=== PATIENT | female | born 1955 | race Caucasian/White ===

== ENCOUNTER → 2017-04-05 | Outpatient (CLI) | payer OTHER ==
[~2017-04-05] MED LIST: CALA180T PO; COZA100T PO; LOPR50TA12 PO; MECL-62 PO
[2017-04-05 09:27] LABS: BASOPHIL % 0.7 % (0.0-2.0); EOSINOPHIL % 0.5 % (0.0-4.0); HEMATOCRIT 35.8 % (35.0-46.0); HEMO FLAGS DIFF FINAL; LYMPH % 17.8 % (9.0-44.0); MEAN CELL VOLUME 86.8 FL (80.0-100.0); MEAN CORPUSCULAR HEMOGLOBIN 29.5 PG (27.0-34.0); MONO % 9.5 % (0.0-8.0); NEUT % 71.5 % (16.0-70.0); PLATELET COUNT 217 TH/MM3 (150-450); RED BLOOD COUNT 4.12 MIL/MM3 (4.00-5.30); RED CELL DISTRIBUTION WIDTH 15.3 % (11.6-17.2); WHITE BLOOD COUNT 5.6 TH/MM3 (4.0-11.0)
[2017-04-05 10:02] LABS: WESTERGREN SEDIMENTATION RATE 6 mm/hr (0-30)
[2017-04-05 10:03] LABS: ALKALINE PHOSPHATASE 132 U/L (45-117); ALT (GPT) 25 U/L (10-53); ANION GAP 6 MEQ/L (5-15); AST (GOT) 20 U/L (15-37); BICARBONATE 27.3 MEQ/L (21.0-32.0); BLOOD UREA NITROGEN 10 MG/DL (7-18); CHLORIDE 98 MEQ/L (98-107); GLOMERULAR FILTRATION RATE 90 ML/MIN (>89); GLUCOSE,FASTING 91 MG/DL (74-99); HDL CHOLESTEROL 88.4 MG/DL (40.0-60.0); LDL CHOLESTEROL 64 MG/DL (0-99); POTASSIUM 4.4 MEQ/L (3.5-5.1); SODIUM (NA) 131 MEQ/L (136-145); TOTAL BILIRUBIN ADULT 0.3 MG/DL (0.2-1.0)
[2017-04-05 12:31] LABS: HEMOGLOBIN A1a 1.1 %; HEMOGLOBIN A1b 1.4 %; HEMOGLOBIN Ao 86.2 %; HEMOGLOBIN LA1C 1.8 %; HEMOGLOBIN P3 3.5 %
== END ==
LOC: CLAB 09:00
PROVIDERS: ATTEND Internal Medicine Rheumatology
DX: I10 Essential (primary) hypertension (principal); M35.01 Sjogren syndrome with keratoconjunctivitis; Z79.899 Other long term (current) drug therapy
CPT/HCPCS: 36415; 80053; 80061; 82306; 83036; 84443; 85025; 85652; 86317

== ENCOUNTER → 2017-12-12 | Outpatient (CLI) | payer OTHER ==
[2017-12-12 12:31] LABS: HEMATOCRIT 36.2 % (35.0-46.0); MEAN CELL VOLUME 88.1 FL (80.0-100.0); MEAN CORPUSCULAR HEMOGLOBIN 29.1 PG (27.0-34.0); MEAN PLATELET VOLUME 7.1 FL (7.0-11.0); PLATELET COUNT 253 TH/MM3 (150-450); RED BLOOD COUNT 4.11 MIL/MM3 (4.00-5.30); RED CELL DISTRIBUTION WIDTH 13.4 % (11.6-17.2); REVIEW FLAG FINAL; WHITE BLOOD COUNT 9.3 TH/MM3 (4.0-11.0)
[2017-12-12 12:42] LABS: ALKALINE PHOSPHATASE 119 U/L (45-117); TOTAL BILIRUBIN ADULT 0.3 MG/DL (0.2-1.0); TOTAL PROTEIN 7.2 GM/DL (6.4-8.2)
[2017-12-12 12:48] LABS: ALBUMIN 3.3 GM/DL (3.4-5.0); ALT (GPT) 29 U/L (10-53); ANION GAP 7 MEQ/L (5-15); AST (GOT) 23 U/L (15-37); BICARBONATE 23.7 MEQ/L (21.0-32.0); BLOOD UREA NITROGEN 7 MG/DL (7-18); CALCIUM 9.3 MG/DL (8.5-10.1); CHLORIDE 102 MEQ/L (98-107); CREATININE 0.67 MG/DL (0.50-1.00); GLOMERULAR FILTRATION RATE 89 ML/MIN (>89); GLUCOSE,FASTING 92 MG/DL (74-99); POTASSIUM 4.4 MEQ/L (3.5-5.1); SODIUM (NA) 133 MEQ/L (136-145)
[2017-12-12 12:55] LABS: WESTERGREN SEDIMENTATION RATE 11 mm/hr (0-30)
== END ==
LOC: CLAB 11:48
DX: M35.01 Sjogren syndrome with keratoconjunctivitis (principal); Z79.899 Other long term (current) drug therapy
CPT/HCPCS: 36415; 80053; 85027; 85652

== ENCOUNTER → 2018-01-23 | Outpatient (CLI) | payer OTHER ==
[2018-01-23 11:49] LABS: BACTERIA, URINE OCC /hpf; BILIRUBIN, URINE NEG (NEG); BLOOD, URINE NEG (NEG); GLUCOSE,URINE NEG (NEG); KETONE, URINE NEG (NEG); MUCUS URINE FEW /lpf (OCC); NITRITE,URINE NEG (NEG); PH, URINE 6.5 (5.0-8.5); SQUAMOUS EPITHELIAL CELL URINE 1 /hpf (0-5); URINE COLOR YELLOW (YELLW/STRAW); URINE LEUKOCYTE ESTERASE MOD (NEG)
== END ==
LOC: CLAB 10:42
PROVIDERS: ATTEND Internal Medicine
DX: R35.0 Frequency of micturition (principal)
CPT/HCPCS: 36415; 81001